=== PATIENT | female | born 1970 | race Hispanic/Latino ===

== ENCOUNTER 2022-06-21 08:39 | Emergency (ER) | payer BC ==
[~2022-06-21] VITALS: Ht 157.5 cm; Wt 65.8 kg
[2022-06-21] MEDS ORDERED: KETOROLAC TROMETHAMINE 60 MG/2 ML VIAL IM ONE (09:00)
[2022-06-21] MEDS ORDERED: ACETAMINOPHEN500 MG PO (09:04)
[2022-06-21] MEDS ORDERED: PREDNISONE50 MG PO (09:04)
[2022-06-21] MEDS ORDERED: IBUPROFEN200 MG PO (09:04)
[2022-06-21] MEDS ORDERED: KETOROLAC TROMETHAMINE 60 MG/2 ML VIAL ONE (09:12)
== END 2022-06-21 11:08 | disposition home or self-care (01) ==
LOC: FSED 08:47
DX: M54.41 Lumbago with sciatica, right side (principal); I10 Essential (primary) hypertension
CPT/HCPCS: 72100; 81003; 99284; J1885